=== PATIENT | female | born 1985 | race Caucasian/White ===

== ENCOUNTER 2023-12-27 15:57 | Outpatient (CLI) | payer BC | END 2023-12-27 15:58 | disposition home or self-care (01) | LOC: CSHRAD 15:57 | PROVIDERS: ATTEND Chiropractor | DX: M79.671 Pain in right foot (principal); M79.672 Pain in left foot; M77.31 Calcaneal spur, right foot; M89.8X7 Other specified disorders of bone, ankle and foot ==